=== PATIENT | female | born 1990 | race Two or more races ===

== ENCOUNTER 2017-01-12 15:25 | Observation (INO) | payer MEDICAID ==
[~2017-01-12] VITALS: Ht 165.1 cm; Wt 56.7 kg
[2017-01-12 16:37] LABS: Urine Bilirubin Negative (Negative); Urine Blood Negative /uL (Negative); Urine Color Yellow (Yellow); Urine Glucose TRACE mg/dL (Normal); Urine Ketone Negative (Negative); Urine Mucus FEW (None Seen); Urine RBC 3 /hpf (0 - 4); Urine Squamous Epithelial Cell MOD /hpf (<5); Urine pH 6.5 (5.0-8.0)
[2017-01-12 16:41] LABS: Urine Nitrite POSITIVE (Negative)
[2017-01-12] MEDS ORDERED: ACETAMINOPHEN 325 MG TAB PO PRN (19:30)
[2017-01-12] MEDS ORDERED: IBUPROFEN 600 MG TAB PO PRN (19:30)
[2017-01-13] MEDS ORDERED: DOCUSATE CALCIUM 240 MG CAP PO SCH (10:00)
== END 2017-01-12 19:50 | disposition home or self-care (01) | DRG 566 ==
LOC: LDRP 15:25
PROVIDERS: ADMIT Specialist; ATTEND Specialist
DX: O23.43 Unspecified infection of urinary tract in pregnancy, third trimester (principal); E86.0 Dehydration; O26.893 Other specified pregnancy related conditions, third trimester; R10.30 Lower abdominal pain, unspecified; M54.9 Dorsalgia, unspecified; O62.9 Abnormality of forces of labor, unspecified; Z3A.36 36 weeks gestation of pregnancy
CPT/HCPCS: 59025; 80307; 81001; 81002; G0378; 96365; 96366

== ENCOUNTER 2017-01-24 23:30 | Observation (INO) | payer MEDICAID ==
[2017-01-25 00:14] LABS: Urine Bilirubin Negative (Negative); Urine Color Yellow (Yellow); Urine Glucose 3+ mg/dL (Normal); Urine Urobilinogen Normal (Negative)
[2017-01-25 00:15] LABS: Urine Blood Trace /uL (Negative); Urine Ketone Trace (Negative); Urine Mucus FEW (None Seen); Urine Nitrite POSITIVE (Negative); Urine RBC 3 /hpf (0 - 4); Urine Squamous Epithelial Cell FEW /hpf (<5)
[2017-01-25] MEDS ORDERED: cefTRIAXone 1GM/50ML D5W 50 ML IV ONE ×2 (00:31→00:33)
== END 2017-01-25 01:57 | disposition home or self-care (01) | DRG 566 ==
LOC: LDRP 23:30
PROVIDERS: ADMIT Specialist; ATTEND Specialist
DX: O42.913 Preterm premature rupture of membranes, unspecified as to length of time between rupture and onset of labor, third trimester (principal); O26.893 Other specified pregnancy related conditions, third trimester; M54.9 Dorsalgia, unspecified; Z3A.34 34 weeks gestation of pregnancy
CPT/HCPCS: 59025; 80307; 81001; 81002; 82962; G0378; J0696; J7030; 96365; 96366

== ENCOUNTER 2017-02-15 12:25 | Observation (INO) | payer MEDICAID | END 2017-02-15 14:05 | disposition home or self-care (01) | DRG 566 | LOC: LDRP 12:25 | PROVIDERS: ADMIT Specialist; ATTEND Specialist | DX: O24.419 Gestational diabetes mellitus in pregnancy, unspecified control (principal); Z3A.37 37 weeks gestation of pregnancy | CPT/HCPCS: 59025; 76818; 81002; G0378 ==

== ENCOUNTER 2017-02-19 16:30 | Observation (INO) | payer MEDICAID | END 2017-02-19 17:30 | disposition home or self-care (01) | DRG 566 | LOC: LDRP 16:30 → INTOOBSV 16:30 → LDRP 16:52 | PROVIDERS: ADMIT Obstetrics & Gynecology; ATTEND Obstetrics & Gynecology | DX: O26.893 Other specified pregnancy related conditions, third trimester (principal); Z3A.38 38 weeks gestation of pregnancy | CPT/HCPCS: 59025; 76818; 81002; G0378 ==